=== PATIENT | male | born 1980 | race African-American/Black ===

== ENCOUNTER 2016-03-28 22:38 | Emergency (ER) | payer OTHER ==
[~2016-03-28] VITALS: Ht 182.9 cm; Wt 113.4 kg
[~2016-03-28 22:38] MED LIST: CLON0.5T; FLUO10CA26; RISP0.252
[2016-03-28 23:31] LABS: ANION GAP 16 (5-14); CALCIUM, SERUM 8.9 mg/dL (8.5-10.1); CARBON DIOXIDE 28 mmol/L (21-32); CHLORIDE 100 mmol/L (98-107); CREATININE 1.6 mg/dL (0.6-1.3); GFR 60 mL/min (>60); GLUCOSE 141 mg/dL (74-106); POTASSIUM 4.7 mmol/L (3.5-5.1); SODIUM SERUM 139 mmol/L (136-145); UREA NITROGEN, BLOOD 42 mg/dL (7-18)
[2016-03-28 23:37] LABS: ALANINE AMINOTRANSFERASE 114 U/L (12-78); ALBUMIN 3.9 g/dL (3.4-5.0); ASPARTATE AMINOTRANSFERASE 295 U/L (15-37); BILIRUBIN,DIRECT 0.1 mg/dL (0.0-0.2); BILIRUBIN,TOTAL 0.8 mg/dL (0.2-1.0); INDIRECT BILIRUBIN 0.7 mg/dL (0.0-1.1); TOTAL PROTEIN, SERUM 8.5 g/dL (6.4-8.2)
[2016-03-28 23:38] LABS: ACETAMINOPHEN 0 ug/ml (10-30); SALICYLATE 1.9 mg/dL (2.8-20.0)
[2016-03-28 23:39] LABS: DIFF TOTAL % 100 %; HEMATOCRIT 47 % (39-51); LYMPHOCYTES # (AUTO) 0.5 /CMM (0.8-4.8); LYMPHOCYTES % (AUTO) 3.3 % (20.0-44.0); MEAN CORPUSCULAR HEMOGLOBIN 29 PG (26.0-33.0); MEAN CORPUSCULAR HGB CONC 34 g/dl (31.0-36.0); MEAN CORPUSCULAR VOLUME 85 fL (80-96); MONOCYTES % (AUTO) 6.5 % (2.0-12.0); NEUTROPHILS # (AUTO) 14.2 /CMM (1.8-8.9); NEUTROPHILS % (AUTO) 90.2 % (43.0-81.0); PLATELET COUNT (AUTO) 298 /CMM (150-450); RED BLOOD CELL COUNT(AUTO) 5.53 MIL/uL (4.5-6.0); WHITE BLOOD COUNT (AUTO) 15.7 K/uL (4.3-11.0)
[2016-03-29 00:55] LABS: CANNABINOID, URINE POSITIVE (NEGATIVE); PHENCYCLIDINE SCREEN,URINE NEGATIVE (NEGATIVE)
[2016-03-29 03:02] VITALS: BP 117/85
== END 2016-03-29 03:00 | disposition home or self-care (01) ==
LOC: ER 22:41
DX: F23 Brief psychotic disorder (principal); F31.9 Bipolar disorder, unspecified; Z88.8 Allergy status to other drugs, medicaments and biological substances
CPT/HCPCS: 36415; 80048; 80076; 80305; 85025; 93005; 99285; A4606; G0480; G0481; G0482; Z7610; G6038-TC; G6039-TC; G6040-TC

== ENCOUNTER 2016-11-22 04:56 | Emergency (ER) | payer OTHER ==
[~2016-11-22] VITALS: Ht 175.3 cm; Wt 90.7 kg
[~2016-11-22 04:56] MED LIST changes: -RISP0.252; +RISP0.253
--- NOTE | 2016-11-22 05:05 | NUR ---
TO BED 12 A 36 YO MALE BIBRA FROM [facility] HERE FOR AGITATION/TALKING TO SELF. DENIES SI/HI. PATIENT IS ALERT, RESPONSIVE, HYPERVERBAL, APPEARS ANXIOUS. UNABLE TO BE DIRECTED AT THIS TIME. ONGOING VS MONITORING. SAFETY AND COMFORT MEASURES IN PLACE.
[2016-11-22] MEDS ORDERED: LORAZEPAM INJ 2 MG/ML VIAL ONE (05:10)
--- NOTE | 2016-11-22 05:15 | NUR ---
ATIVAN 2MG IM GIVEN ON THE R DELTOID PER DR DOTY'S ORDER.
[2016-11-22 05:21] LABS: BASOPHILS % (AUTO) 0.2 % (0.0-2.0); HEMATOCRIT 45 % (39-51); HEMOGLOBIN 14.9 g/dL (13.5-17.5); LYMPHOCYTES # (AUTO) 1.7 /CMM (0.8-4.8); LYMPHOCYTES % (AUTO) 9.5 % (20.0-44.0); MEAN CORPUSCULAR HEMOGLOBIN 29 PG (26.0-33.0); MEAN CORPUSCULAR HGB CONC 33 g/dl (31.0-36.0); MEAN CORPUSCULAR VOLUME 88 fL (80-96); MONOCYTES % (AUTO) 11.2 % (2.0-12.0); NEUTROPHILS # (AUTO) 14.1 /CMM (1.8-8.9); NEUTROPHILS % (AUTO) 79.1 % (43.0-81.0); PLATELET COUNT (AUTO) 257 /CMM (150-450); RDW COEFFICIENT OF VARIATION 14.9 (11.5-15.0); RED BLOOD CELL COUNT(AUTO) 5.11 MIL/uL (4.5-6.0); WHITE BLOOD COUNT (AUTO) 17.8 K/uL (4.3-11.0)
[2016-11-22] MEDS ORDERED: LORAZEPAM INJ 2 MG/ML VIAL IM ONE (05:30)
[2016-11-22] MEDS ORDERED: diphenhydrAMINE HCL 50 MG/ML VIAL ONE (05:34)
[2016-11-22] MEDS ORDERED: OLANZAPINE 10 MG VIAL IM ONE ×2 (05:34→06:00)
[2016-11-22 05:48] LABS: CALCIUM, SERUM 8.8 mg/dL (8.5-10.1); CARBON DIOXIDE 23 mmol/L (21-32); CHLORIDE 103 mmol/L (98-107); CREATININE 1.7 mg/dL (0.6-1.3); GLUCOSE 127 mg/dL (74-106); POTASSIUM 3.8 mmol/L (3.5-5.1); SODIUM SERUM 140 mmol/L (136-145); UREA NITROGEN, BLOOD 37 mg/dL (7-18)
[2016-11-22 05:54] LABS: ALANINE AMINOTRANSFERASE 67 U/L (12-78); ALBUMIN 4.4 g/dL (3.4-5.0); ALKALINE PHOSPHATASE 61 U/L (46-116); ASPARTATE AMINOTRANSFERASE 139 U/L (15-37); BILIRUBIN,DIRECT 0.2 mg/dL (0.0-0.2); TOTAL PROTEIN, SERUM 8.8 g/dL (6.4-8.2)
[2016-11-22] MEDS ORDERED: diphenhydrAMINE HCL 50 MG/ML VIAL IM ONE (06:00)
[2016-11-22 06:03] LABS: ACETAMINOPHEN 0 ug/ml (10-30); ALCOHOL, BLOOD < 3 mg/dL (0-0); SALICYLATE 1.9 mg/dL (2.8-20.0)
[2016-11-22 06:58] LABS: APPEARANCE,URINE CLEAR (CLEAR); BILIRUBIN,URINE 1+ (NEGATIVE); BLOOD, URINE 2+ Ery/uL (NEGATIVE); COLOR,URINE DARK YELLO (YELLOW); KETONES,URINE 2+ (NEGATIVE); LEUKOCYTE ESTERASE ,URINE NEGATIVE (NEGATIVE); NITRITE, URINE NEGATIVE (NEGATIVE); PROTEIN,URINE 2+ mg/dl (NEGATIVE); UGLUCOSE NEGATIVE (NEGATIVE); UROBILINOGEN,URINE 0.2 EU/dL (0.2)
--- NOTE | 2016-11-22 07:22 | NUR ---
report given to lexus hernandez for mark.
[2016-11-22] MEDS ORDERED: ZIPRASIDONE 20 MG CAPSULE PO SCH (07:30)
[2016-11-22 07:41] LABS: BACTERIA,URINE Few /HPF (None Seen); SQUAMOUS EPITHELIAL CELL,UR Few /HPF (None Seen); WBC,URINE 0-2 /HPF (0-3)
--- NOTE | 2016-11-22 07:48 | NUR ---
PATIENT ON BED, AWAKE AT THIS TIME WITH VSS
--- NOTE | 2016-11-22 09:00 | NUR ---
Patient is resting comfortably in bed with eyes closed. Easily aroused. VSS
--- NOTE | 2016-11-22 09:15 | NUR ---
ART ARINA CALLED FOR PSYCHE EVAL [phone]
--- NOTE | 2016-11-22 10:27 | NUR ---
Patient is resting comfortably in bed with eyes closed. Easily aroused. VSS
--- NOTE | 2016-11-22 10:39 | NUR ---
[employer] AT BEDSIDE FOR EWAL
--- NOTE | 2016-11-22 12:00 | NUR ---
Patient is resting comfortably in bed with eyes closed. Easily aroused. VSS
--- NOTE | 2016-11-22 14:00 | NUR ---
Patient is resting comfortably in bed with eyes closed. Easily aroused. VSS
--- NOTE | 2016-11-22 15:22 | NUR ---
Patient is resting comfortably in bed with eyes closed. Easily aroused. VSS
--- NOTE | 2016-11-22 17:48 | NUR ---
Patient is resting comfortably in bed. VSS
--- NOTE | 2016-11-23 02:00 | NUR ---
pt sleeping in [place]. no signs of distress noted. pt vital signs normal. will cont to monitor pt.
[2016-11-23] MEDS ORDERED: HALOPERIDOL LACTATE INJ 5 MG/ML VIAL ONE (06:32)
[2016-11-23] MEDS ORDERED: diphenhydrAMINE HCL 50 MG/ML VIAL ONE (06:32)
[2016-11-23] MEDS ORDERED: LORAZEPAM INJ 2 MG/ML VIAL ONE (06:33)
[2016-11-23] MEDS ORDERED: OLANZAPINE 5 MG TABLET ONE (06:48)
--- NOTE | 2016-11-23 06:53 | NUR ---
patient woke up agitated. reorientation done. safety measures in place. medicated per Dr Ann's order.
[2016-11-23] MEDS ORDERED: HALOPERIDOL LACTATE INJ 5 MG/ML VIAL IM ONE (07:00)
[2016-11-23] MEDS ORDERED: diphenhydrAMINE HCL 50 MG/ML VIAL IM ONE (07:00)
[2016-11-23] MEDS ORDERED: OLANZAPINE 5 MG TABLET PO ONE (07:00)
[2016-11-23] MEDS ORDERED: LORAZEPAM INJ 2 MG/ML VIAL IVP ONE (07:00)
--- NOTE | 2016-11-23 09:47 | NUR ---
Akhil called for transport ETA 45
[2016-11-23 10:30] VITALS: BP 132/87
--- NOTE | 2016-11-23 10:30 | NUR ---
REPORT GIVEN TO EMT FOR TRANSPORT TO [facility].
== END 2016-11-23 12:03 | disposition home or self-care (01) ==
LOC: ER 04:59
DX: F23 Brief psychotic disorder (principal); F31.9 Bipolar disorder, unspecified; F17.200 Nicotine dependence, unspecified, uncomplicated; Z88.8 Allergy status to other drugs, medicaments and biological substances
CPT/HCPCS: 36415; 71010; 80048; 80076; 80305; 80329; 81001; 85025; 96372 ×3; 99285; A4606; G0480 ×2; J1200; J2060; J3490; Z7610; 81000-TC; J1630

== ENCOUNTER 2020-05-15 23:16 | Emergency (ER) | payer OTHER ==
[~2020-05-15] VITALS: Ht 182.9 cm; Wt 104.3 kg
[2020-05-15 23:20] VITALS: BP 151/91
[2020-05-15] MEDS ORDERED: LORAZEPAM 1 MG TABLET PO ONE (23:30)
[2020-05-15] MEDS ORDERED: LORAZEPAM 1 MG TABLET ONE (23:32)
--- NOTE | 2020-05-15 23:46 | NUR ---
PATIENT DENIES SI/ HI. PATIENT IS AMBULATORY WITH A STEADY GAIT. 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
--- NOTE | 2020-05-15 23:47 | NUR ---
Patient discharged to home in stable condition. Written and verbal after care instructions given. Patient verbalizes understanding of instruction.
== END 2020-05-15 23:47 | disposition home or self-care (01) ==
LOC: ER 23:19
DX: F15.10 Other stimulant abuse, uncomplicated (principal); F31.9 Bipolar disorder, unspecified; F29 Unspecified psychosis not due to a substance or known physiological condition; F10.10 Alcohol abuse, uncomplicated; F17.200 Nicotine dependence, unspecified, uncomplicated; Y90.9 Presence of alcohol in blood, level not specified; Z98.890 Other specified postprocedural states; Z88.8 Allergy status to other drugs, medicaments and biological substances; Z79.899 Other long term (current) drug therapy